=== PATIENT | male | born 1970 | race Caucasian/White ===

== ENCOUNTER 2018-08-28 09:43 | Emergency (ER) | payer MEDICARE, MEDICAID ==
[~2018-08-28] VITALS: Ht 175.3 cm; Wt 88.0 kg
[2018-08-28] MEDS ORDERED: morphine 5 MG/ML injection IM ONE (10:20)
[2018-08-28] MEDS ORDERED: morphine 10mg/ml inj. IM ONE (10:25)
[2018-08-28 11:06] VITALS: BP 141/86
== END 2018-08-28 11:08 | disposition home or self-care (01) ==
LOC: ER 09:43
DX: S52.501A Unspecified fracture of the lower end of right radius, initial encounter for closed fracture (principal); G89.29 Other chronic pain; Z98.890 Other specified postprocedural states; Z88.0 Allergy status to penicillin; W01.0XXA Fall on same level from slipping, tripping and stumbling without subsequent striking against object, initial encounter; Y93.89 Activity, other specified; Y92.89 Other specified places as the place of occurrence of the external cause; Y99.8 Other external cause status
CPT/HCPCS: 29125; 73090; 96372; 99284; J2270

== ENCOUNTER 2021-06-06 18:49 | Emergency (ER) | payer MEDICARE, MEDICAID ==
[~2021-06-06] VITALS: Ht 177.8 cm; Wt 88.6 kg
[2021-06-06 20:27] VITALS: BP 137/93
--- NOTE | 2021-06-06 20:28 | NUR ---
PT IN FT ROOM 2, VITAL SIGNS TAKEN. BEING SEEN FOR ABCESS TO RIGHT HAND.
[2021-06-06] MEDS ORDERED: TETanus/Pertussis (Acell)/Diphther VAC/PF (Tdap-Adult) 0.5ml syringe IMVAC ONE (20:50)
[2021-06-06] MEDS ORDERED: CEPH250T PO (20:57)
[2021-06-06] MEDS ORDERED: DOXY100C76 PO (20:57)
== END 2021-06-06 21:22 | disposition home or self-care (01) ==
LOC: ER 18:50
DX: L02.512 Cutaneous abscess of left hand (principal); G89.29 Other chronic pain; Z88.0 Allergy status to penicillin; Z79.2 Long term (current) use of antibiotics
CPT/HCPCS: 10060; 90471; 90715; 99283